=== PATIENT | female | born 1980 | race Caucasian/White ===

== ENCOUNTER → 2020-05-20 | Outpatient (CLI) | payer BC ==
[~2020-05-20] MED LIST: DAYPRO600 M1 PO; MOTRIN800 MG PO; ROBAXIN750 MG PO
== END | disposition home or self-care (01) ==
LOC: COVID19 10:38
PROVIDERS: ATTEND Family Medicine
DX: Z20.828 Contact with and (suspected) exposure to other viral communicable diseases (principal)

== ENCOUNTER 2022-11-08 23:27 | Emergency (ER) | payer BC ==
[~2022-11-08] VITALS: Ht 157.4 cm; Wt 86.2 kg
[2022-11-09] MEDS ORDERED: PENICILLIN VK500 MG PO (00:26)
== END 2022-11-09 00:40 | disposition home or self-care (01) ==
LOC: ED 23:27
DX: J02.9 Acute pharyngitis, unspecified (principal)

== ENCOUNTER 2024-03-04 20:05 | Emergency (ER) | payer BC ==
[~2024-03-04] VITALS: Ht 157.4 cm; Wt 74.4 kg
[~2024-03-04 20:05] MED LIST changes: +PENICILLIN VK500 MG PO
[2024-03-04] MEDS ORDERED: Tdap Vaccine 0.5 ML SYR (Adult Vaccine) IM ONE (20:30)
[2024-03-04] MEDS ORDERED: CEPHALEXIN500 M1 PO (21:02)
== END 2024-03-04 21:06 | disposition home or self-care (01) ==
LOC: ED 20:05
DX: S61.411A Laceration without foreign body of right hand, initial encounter (principal); S61.011A Laceration without foreign body of right thumb without damage to nail, initial encounter; W26.8XXA Contact with other sharp object(s), not elsewhere classified, initial encounter; Y93.89 Activity, other specified; Y92.89 Other specified places as the place of occurrence of the external cause; Y99.8 Other external cause status

== ENCOUNTER 2024-03-11 10:25 | Emergency (ER) | payer BC ==
[~2024-03-11] VITALS: Ht 157.4 cm; Wt 77.1 kg
[~2024-03-11 10:25] MED LIST changes: +CEPHALEXIN500 M1 PO
== END 2024-03-11 11:07 | disposition home or self-care (01) ==
LOC: ED 10:25
DX: S61.411D Laceration without foreign body of right hand, subsequent encounter (principal); X58.XXXD Exposure to other specified factors, subsequent encounter

== ENCOUNTER 2024-05-09 12:25 | Emergency (ER) | payer BC ==
[~2024-05-09] VITALS: Wt 78.0 kg
[2024-05-09 13:18] LABS: BASO # 0.1 10*3/uL (0.0-0.1); BASO % 0.7 % (0.0-1.0); EOS # 0.1 10*3/uL (0.0-0.4); EOS % 0.9 % (1.0-4.0); HEMATOCRIT 41.1 % (37.0-47.0); LYMPH # 1.5 10*3/uL (1.3-4.4); LYMPH % 22.8 % (27.0-41.0); MEAN CELL VOLUME 88.2 fl (81.0-99.0); MEAN CORPUSCULAR HGB CONC 32.8 g/dl (33.0-37.0); MONO # 0.5 10*3/uL (0.1-1.0); MONO % 6.7 % (3.0-9.0); NEUT # 4.6 10*3/uL (2.3-7.9); NEUT % 68.6 % (47.0-73.0); PLATELET COUNT AUTOMATED 268 10*3/uL (130-400); RED BLOOD COUNT 4.66 10*6/uL (4.10-5.10); RED CELL DISTRI WIDTH 13.2 % (0-14.5); WHITE BLOOD COUNT 6.8 10*3/uL (4.8-10.8)
[2024-05-09 13:37] LABS: BUN 11 mg/dl (9-23); CHLORIDE 107 mmol/L (98-107); POTASSIUM 3.8 mmol/L (3.4-5.1)
[2024-05-09 13:47] LABS: BILIRUBIN Negative (Negative); BLOOD Negative (Negative); CLARITY Clear (Clear); COLOR Yellow (Yellow); GLUCOSE Negative (Negative); KETONE Negative (Negative); LEUKO ESTERASE Negative (Negative); NITRITE Negative (Negative); UROBILINOGEN 0.2 E.U./dl (0.0-1.0)
[2024-05-09 13:52] LABS: URINE AMPHETAMINES Negative (1000ng/ml); URINE BARBITURATES Negative (200ng/ml); URINE BENZODIAZEPINES Negative (200ng/ml); URINE CANNABINOIDS (THC) Negative (50ng/ml); URINE COCAINE Negative (300ng/ml); URINE METHADONE Negative (300ng/ml); URINE OPIATES Negative (300ng/ml); URINE PHENCYCLIDINE Negative (25ng/ml)
[2024-05-09 13:56] LABS: WBC 0-2 wbc/hpf (0-5)
[2024-05-09] MEDS ORDERED: MEDROL DOSEPAK4 MG PO (15:42)
== END 2024-05-09 15:54 | disposition home or self-care (01) ==
LOC: ED 12:25
PROVIDERS: Nurse Practitioner Family
DX: R42 Dizziness and giddiness (principal); R27.0 Ataxia, unspecified; H53.8 Other visual disturbances; H69.90 Unspecified Eustachian tube disorder, unspecified ear; Z79.899 Other long term (current) drug therapy